=== PATIENT | male | born 1955 | race Caucasian/White ===

== ENCOUNTER 2017-04-25 06:58 | Emergency (ER) | payer BC ==
--- NOTE | 2017-04-25 07:32 | EDM.PDOC ---
ED HPI GENERAL MEDICAL PROBLEM - General Chief Complaint: Skin Complaint Stated Complaint: RECENT HEART CATHETER, TIGHTNESS IN RT ARM Time Seen by Provider: 04/25/17 07:18 - History of Present Illness INITIAL COMMENTS - FREE TEXT/NARRATIVE: HISTORY AND PHYSICAL: History of present illness: The patient is a 61-year-old male who presents for evaluation of redness of his inner left upper extremity where he had a heart catheter performed on April 07 at [facility]. The patient follows in our family practice clinic with Dr. Pj Yan and has a history of a CABG in 2006 and states that he was having some chest tightness and he went to [facility] where he had a heart catheter performed. He says that there was some minor blockage but they did not stand him and they placed him on some medication and did not want to see him back there for a checkup for one year. The patient has a follow-up scheduled with Dr. Yan on May 11. Patient says he has noticed some slight discomfort in his left upper extremity/biceps area on the inner aspect but there is no arm weakness and he has not had any chest pain or shortness of breath. This morning he noticed there was some redness in a streak-like fashion and he was concerned so we called [facility] who advised that he come here for evaluation. Patient has no systemic complaints of fever cough runny nose sore throat neurosensory changes in his extremities and is eating and drinking normally. Patient says that if he did not see the redness he would not even be here. He has had no swelling of the arm. Review of systems: As per history of present illness and below otherwise all systems reviewed and negative. Past medical history: As per history of present illness and as reviewed below otherwise noncontributory. Surgical history: As per history of present illness and as reviewed below otherwise noncontributory. Social history: No reported history of drug or alcohol abuse. Family history: As per history of present illness and as reviewed below otherwise noncontributory. Physical exam: Gen.: Well-developed well-nourished man who is nontoxic and vital signs have been noted by me. He moves easily in the ER without distress. HEENT: Atraumatic, normocephalic, negative for conjunctival pallor or scleral icterus, mucous membranes moist, throat clear, neck supple, nontender, trachea midline. Lungs: Clear to auscultation, breath sounds equal bilaterally, chest nontender. Heart: S1S2, regular rate and rhythm no overt murmurs Abdomen: Soft, nondistended, nontender. NABS. Pelvis: Stable nontender. Genitourinary: Deferred. Rectal: Deferred. Extremities: Atraumatic, negative for cords or calf pain. Neurovascular unremarkable. At the left upper extremity there is a small punctate scab seen as the entry point into the radial artery which has no erythema swelling or redness and there is no tenderness or drainage. A short distance more proximally there is a faint pink streaks that randomly originates and travels up towards the axillary area which is well demarcated but very faint pink in color. There is minimal tenderness to palpation in the area is slightly hardened and there is no compartment swelling and no neurosensory or motor deficits in the arm and there is no axillary adenopathy or tenderness. The patient has a very strong radial pulse in the left wrist Neuro: Awake, alert, oriented. Cranial nerves II through XII unremarkable. Cerebellum unremarkable. Motor and sensory unremarkable throughout. Exam nonfocal. Diagnostics: CBC with differential Arterial Doppler of the left upper extremity Therapeutics: [] [id number]-- this case was discussed with the screwhead stoner and polisher conservation scientist at [facility] , , who agrees this is likely a thrombophlebitis recommends an arterial Doppler to be performed as there is a 15-20% incidence of radial artery thrombus after this procedure. He says that oftentimes they do not treat this but it would be good to document that and if there is significant clot and a 10 day course of Lovenox would be indicated if there was any significant amount of thrombus. I discussed this conversation with the patient and will perform the ultrasound and also discussed this case with the patient's primary care physician Dr. Yan. The screwhead stoner and polisher also recommended a short course of antibiotics The patient and at bedside are aware of the normal arterial ultrasound and I will give him a course of Keflex. The patient's provider Dr. Yan is also aware of these results and the patient and has requested that the patient contact him on Sunday to touch base with him Impression: thrombo-Phlebitis status post heart catheter Of the left radial artery Definitive disposition and diagnosis as appropriate pending reevaluation and review of above. no pain Pain Score (Numeric/FACES): 0 - Related Data Allergies Allergy/AdvReac Type Severity Reaction Status Date / Time gluten Allergy Diarrhea Verified 04/25/17 07:10 Home Meds: Home Meds Aspirin 325 mg PO BEDTIME 04/25/17 [History] Carvedilol [Carvedilol] 1 tab PO DAILY 04/25/17 [History] Fish Oil/DHA/EPA [Fish Oil 1,200 MG] 1 each PO DAILY 04/25/17 [History] Furosemide [Furosemide] 1 tab PO DAILY 04/25/17 [History] Indomethacin [Indocin] 1 tab PO DAILY 04/25/17 [History] Lisinopril [Lisinopril] 1 tab PO DAILY 04/25/17 [History] PARoxetine HCl [Paroxetine HCl] 10 mg PO BID 04/25/17 [History] Tamsulosin HCl [Tamsulosin HCl] 1 tab PO BEDTIME 04/25/17 [History] amLODIPine [Norvasc] 5 mg PO DAILY 04/25/17 [History] metFORMIN HCl [Metformin HCl ER] 2 tab PO BID 04/25/17 [History] Past Medical History HEENT History: Reports: None Cardiovascular History: Reports: Bypass Respiratory History: Reports: None Gastrointestinal History: Reports: None Genitourinary History: Reports: None Musculoskeletal History: Reports: None Neurological History: Reports: None Psychiatric History: Reports: Anxiety, Depression Endocrine/Metabolic History: Reports: Diabetes, Type II Hematologic History: Reports: None Immunologic History: Reports: None Oncologic (Cancer) History: Reports: None Dermatologic History: Reports: None - Infectious Disease History Infectious Disease History: Reports: Chicken Pox, Measles, Mumps - Past Surgical History Head Surgeries/Procedures: Reports: None Cardiovascular Surgical History: Reports: Other (See Below) Other Cardiovascular Surgeries/Procedures: Cardiac Cath recently GI Surgical History: Reports: Cholecystectomy Social & Family History - Family History Family Medical History: Noncontributory - Tobacco Use Smoking Status *Q: Never Smoker - Caffeine Use Caffeine Use: Reports: Coffee - Recreational Drug Use Recreational Drug Use: No ED ROS GENERAL - Review of Systems Review Of Systems: ROS reveals no pertinent complaints other than HPI. ED EXAM, SKIN/RASH Exam: See Below (See dictation) Course - Vital Signs Last Recorded V/S: Last Vital Signs Temp 36.9 C 04/25/17 08:52 Pulse 59 L 01/03/18 08:52 Resp 14 04/25/17 08:52 BP 113/68 04/25/17 08:52 Pulse Ox 94 L 04/25/17 08:52 - Orders/Labs/Meds Labs: Laboratory Tests 04/25/17 Range/Units 07:34 WBC 4.97 (4.0-11.0) K/uL RBC 4.28 L (4.50-5.90) M/uL Hgb 13.6 (13.0-17.0) g/dL Hct 39.0 (38.0-50.0) % MCV 91.1 (80.0-98.0) fL MCH 31.8 (27.0-32.0) pg MCHC 34.9 (31.0-37.0) g/dL RDW Std Deviation 43.3 (28.0-62.0) fl RDW Coeff of Shantanu 13 (11.0-15.0) % Plt Count 159 (150-400) K/uL MPV 10.30 (7.40-12.00) fL Neut % (Auto) 54.7 (48.0-80.0) % Lymph % (Auto) 30.2 (16.0-40.0) % [place] % (Auto) 9.3 (0.0-15.0) % Eos % (Auto) 5.0 (0.0-7.0) % Baso % (Auto) 0.8 (0.0-1.5) % Neut # (Auto) 2.7 (1.4-5.7) K/uL Lymph # (Auto) 1.5 (0.6-2.4) K/uL [place] # (Auto) 0.5 (0.0-0.8) K/uL Eos # (Auto) 0.3 (0.0-0.7) K/uL Baso # (Auto) 0.0 (0.0-0.1) K/uL Nucleated RBC % 0.0 /100WBC Nucleated RBCs # 0 K/uL Departure - Departure Time of Disposition: 09:12 Disposition: Home, Self-Care 01 Condition: Good Clinical Impression: Thrombophlebitis arm - Discharge Information Referrals: Pj Yan MD [Primary Care Provider] - Forms: ED Department Discharge Additional Instructions: The following information is given to patients seen in the emergency department who are being discharged to home. This information is to outline your options for follow-up care. We provide all patients seen in our emergency department with a follow-up referral. The need for follow-up, as well as the timing and circumstances, are variable depending upon the specifics of your emergency department visit. If you don't have a primary care physician on staff, we will provide you with a referral. We always advise you to contact your personal physician following an emergency department visit to inform them of the circumstance of the visit and for follow-up with them and/or the need for any referrals to a consulting specialist. The emergency department will also refer you to a specialist when appropriate. This referral assures that you have the opportunity for followup care with a specialist. All of these measure are taken in an effort to provide you with optimal care, which includes your followup. Under all circumstances we always encourage you to contact your private physician who remains a resource for coordinating your care. When calling for followup care, please make the office aware that this follow-up is from your recent emergency room visit. If for any reason you are refused follow-up, please contact the [facility] emergency department at and ask to speak to the emergency department charge nurse. [facility] Primary care- Internal Medicine and Family [address] [address] Please take antibiotics as directed and monitor your symptoms. Please call Dr. Yan on Sunday to check in with him about how you are doing and return to ER as needed and as discussed
--- NOTE | 2017-04-25 09:04 | US ---
EXAMINATION: Left upper extremity arterial duplex ultrasound HISTORY: Evaluate for thrombus COMPARISON: None TECHNIQUE: Grayscale, color Doppler, and spectral Doppler images obtained of the left upper extremity . FINDINGS: Within the region of concern in the left brachial artery there is good triphasic waveforms. The luminal diameter appears normal. The adjacent brachial vein appears patent and compressible. IMPRESSION: No definite sonographic evidence of an arterial thrombus.
== END 2017-04-25 09:21 | disposition home or self-care (01) ==
LOC: MW.ED 06:58
DX: T82.868A Thrombosis due to vascular prosthetic devices, implants and grafts, initial encounter (principal); E11.9 Type 2 diabetes mellitus without complications; Z79.82 Long term (current) use of aspirin; Z79.899 Other long term (current) drug therapy; Z79.84 Long term (current) use of oral hypoglycemic drugs
CPT/HCPCS: 36415; 85025; 93931; 93931-26; 99284; 99284-25

== ENCOUNTER 2018-08-23 10:21 | Observation (INO) | payer MEDICARE, BC ==
[~2018-08-23 10:21] MED LIST: Aspirin 81 MG Tab.Chew PO ONE; Sodium Chloride 0.9% 10 ML Syringe FLUSH PRN; Sodium Chloride 0.9% 2.5 ML Syringe FLUSH PRN
--- NOTE | 2018-08-23 10:24 | EDM.PDOC ---
ED HPI GENERAL MEDICAL PROBLEM - General Stated Complaint: CHEST PAIN Time Seen by Provider: 08/23/18 10:21 Source of Information: Reports: Patient History Limitations: Reports: No Limitations - History of Present Illness INITIAL COMMENTS - FREE TEXT/NARRATIVE: HISTORY AND PHYSICAL: History of present illness: Patient is a 62-year-old male presents to the ED today with concern of sharp chest pain that occurred this morning in the center of his chest. Patient states the pain lasted less than a few seconds but he is concerned with his history of heart problems that he should come in and be evaluated. In the ED, patient denies any active chest pain at this time. Patient states over the past week to 2 weeks he has felt more tired and run down in general. Patient states he has lost 20 pounds in 2 weeks without trying. Patient states he has also had issues with a loss of balance and feels a "buzz" in his head. Patient states he feels like something is wrapped around his head at all times. Patient denies loss of consciousness or hitting his head. Patient states the reason he thinks he has lost weight as he has had a decrease in appetite. He states that he does not necessarily feel nauseous but the sound of food just doesn't seem appealing. Patient denies any tobacco, alcohol, or other recreational drug use. Patient has a history of a triple bypass done in 2006. At that time patient states his only presenting symptoms were shortness of breath. Patient states his symptoms today are not similar to a prior CAD event. Patient does take a daily aspirin at 325 mg and he did take his dose last night. Patient denies fever, chills, shortness of breath, or cough. Denies headache, neck stiff ness, change in vision, syncope, or near syncope. Denies vomiting, abdominal pain, diarrhea, constipation, or dysuria. Has not noted any blood in urine or stool. Review of systems: As per history of present illness and below otherwise all systems reviewed and negative. Past medical history: As per history of present illness and as reviewed below otherwise noncontributory. Surgical history: As per history of present illness and as reviewed below otherwise noncontributory. Social history: See social history for further information Family history: As per history of present illness and as reviewed below otherwise noncontributory. Physical exam: General: Patient is alert, oriented, and in no acute distress. Patient laying comfortably on exam table. HEENT: Atraumatic, normocephalic, pupils equal and reactive bilaterally, negative for conjunctival pallor or scleral icterus, mucous membranes moist, TMs normal bilaterally, throat clear, neck supple, nontender, trachea midline. No drooling or trismus noted. No meningeal signs. No hot potato voice noted. Lungs: Clear to auscultation, breath sounds equal bilaterally, chest nontender. Heart: S1S2, regular rate and rhythm without overt murmur Abdomen: Soft, nondistended, nontender. Negative for masses or hepatosplenomegaly. Negative for costovertebral tenderness. Pelvis: Stable nontender. Genitourinary: Deferred. Rectal: Deferred. Skin: Intact, warm, dry. No lesions or rashes noted. Extremities: Atraumatic, negative for cords or calf pain. Neurovascular unremarkable. Neuro: Awake, alert, oriented. Cranial nerves II through XII unremarkable. Cerebellum unremarkable. Motor and sensory unremarkable throughout. Exam nonfocal. Notes: CXR shows no acute cardiopulmonary process. Head CT shows no acute intracranial findings. Dr. Velasquez was consulted on patient and will admit to observation. Voices understanding and is agreeable to plan of care. Denies any further questions or concerns at this time. Diagnostics: CBC, CMP, UA, EKG, troponin, chest x-ray, head CT, orthostatic vitals Therapeutics: Saline lock Impression: Chest pain, unspecified Cannot r/o ACS h/o ACS with cardiac bypass Plan: 1. Admit to observation to Dr. Velasquez Definitive disposition and diagnosis as appropriate pending reevaluation and review of above. Chest Pain Score (Numeric/FACES): 2 - Related Data Allergies Allergy/AdvReac Type Severity Reaction Status Date / Time gluten Allergy Diarrhea Verified 12/05/17 22:40 MDT [id number] Reductase Allergy Pain Verified 08/23/18 10:28 Inhibitor Home Meds: Home Meds Aspirin 325 mg PO BEDTIME 04/25/17 [History] Carvedilol 3.125 mg PO BID 04/25/17 [History] Fish Oil/DHA/EPA [Fish Oil 1,200 MG] 1,000 mg PO DAILY 04/25/17 [History] Lisinopril 10 mg PO DAILY 04/25/17 [History] Tamsulosin HCl 0.4 mg PO BEDTIME 04/25/17 [History] amLODIPine [Norvasc] 5 mg PO BEDTIME 04/25/17 [History] metFORMIN HCl [Metformin HCl ER] 500 mg PO BID 04/25/17 [History] Ascorbic Acid [Vitamin C] 1,000 mg PO BID 12/05/17 [History] Cholecalciferol (Vitamin D3) [Vitamin D3] 5,000 units PO DAILY 12/05/17 [History ] Multivitamin [Multi-Day Vitamins] 1 tab PO DAILY 12/05/17 [History] Past Medical History HEENT History: Reports: None Cardiovascular History: Reports: Bypass, High Cholesterol, Hypertension Respiratory History: Reports: None Gastrointestinal History: Reports: None Genitourinary History: Reports: None, Prostate Disorder Musculoskeletal History: Reports: None Neurological History: Reports: None Psychiatric History: Reports: Anxiety, Depression Endocrine/Metabolic History: Reports: Diabetes, Type II Hematologic History: Reports: None Immunologic History: Reports: None Oncologic (Cancer) History: Reports: None Dermatologic History: Reports: None - Infectious Disease History Infectious Disease History: Reports: Chicken Pox, Measles, Mumps - Past Surgical History Head Surgeries/Procedures: Reports: None Cardiovascular Surgical History: Reports: Other (See Below) Other Cardiovascular Surgeries/Procedures: Cardiac Cath recently GI Surgical History: Reports: Cholecystectomy Social & Family History - Family History Family Medical History: Noncontributory - Caffeine Use Caffeine Use: Reports: Coffee, Soda ED ROS GENERAL - Review of Systems Review Of Systems: ROS reveals no pertinent complaints other than HPI. ED EXAM, GENERAL - Physical Exam Exam: See Below (see dictation) Course - Vital Signs Last Recorded V/S: Last Vital Signs Temp 36.6 C 08/23/18 10:31 Pulse 58 L 08/23/18 10:31 Resp 18 08/23/18 10:31 BP 143/71 H 08/23/18 10:31 Pulse Ox 98 08/23/18 10:31 - Orders/Labs/Meds Orders: Active Orders 24 hr Category Date Time Status Admission Status [Patient Status] [ADT] Stat ADT 08/23/18 12:00 Ordered EKG Documentation Completion [RC] STAT Care 08/23/18 10:22 Active CULTURE URINE [RM] Stat Lab 08/23/18 11:30 Received Sodium Chloride 0.9% [Saline Flush] Med 08/23/18 10:21 Active 10 ml FLUSH ASDIRECTED PRN Sodium Chloride 0.9% [Saline Flush] Med 08/23/18 10:21 Active 2.5 ml FLUSH ASDIRECTED PRN Saline Lock Insert [OM.PC] Stat Oth 08/23/18 10:21 Ordered Medication Orders Sodium Chloride (Saline Flush) 10 ml FLUSH ASDIRECTED PRN PRN Reason: Keep Vein Open Sodium Chloride (Saline Flush) 2.5 ml FLUSH ASDIRECTED PRN PRN Reason: Keep Vein Open Labs: Laboratory Tests 08/23/18 08/23/18 08/23/18 Range/Units 10:38 10:38 11:30 WBC 6.40 (4.0-11.0) K/uL RBC 4.49 L (4.50-5.90) M/uL Hgb 14.0 (13.0-17.0) g/dL Hct 40.1 (38.0-50.0) % MCV 89.3 (80.0-98.0) fL MCH 31.2 (27.0-32.0) pg MCHC 34.9 (31.0-37.0) g/dL RDW Std Deviation 43.0 (28.0-62.0) fl RDW Coeff of Shantanu 13 (11.0-15.0) % Plt Count 192 (150-400) K/uL MPV 10.20 (7.40-12.00) fL Neut % (Auto) 51.1 (48.0-80.0) % Lymph % (Auto) 33.4 (16.0-40.0) % [place] % (Auto) 9.8 (0.0-15.0) % Eos % (Auto) 4.8 (0.0-7.0) % Baso % (Auto) 0.9 (0.0-1.5) % Neut # (Auto) 3.3 (1.4-5.7) K/uL Lymph # (Auto) 2.1 (0.6-2.4) K/uL [place] # (Auto) 0.6 (0.0-0.8) K/uL Eos # (Auto) 0.3 (0.0-0.7) K/uL Baso # (Auto) 0.1 (0.0-0.1) K/uL Nucleated RBC % 0.0 /100WBC Nucleated RBCs # 0 K/uL Sodium 136 (136-148) mmol/L Potassium 4.5 (3.5-5.1) mmol/L Chloride 99 (98-107) mmol/L Carbon Dioxide 23.2 (21.0-32.0) mmol/L BUN 19 H (7.0-18.0) mg/dL Creatinine 1.0 (0.8-1.3) mg/dL Est Cr Clr Drug Dosing 81.91 mL/min Estimated GFR (MDRD) > 60.0 ml/min Glucose 136 H (74-106) mg/dL Calcium 9.9 (8.5-10.1) mg/dL Total Bilirubin 0.4 (0.2-1.0) mg/dL AST 16 (15-37) IU/L ALT 21 (14-63) IU/L Alkaline Phosphatase 57 (46-116) U/L Troponin I < 0.050 (0.000-0.056) ng/mL Total Protein 8.3 H (6.4-8.2) g/dL Albumin 4.5 (3.4-5.0) g/dL Globulin 3.8 (2.6-4.0) g/dL Albumin/Globulin Ratio 1.2 (0.9-1.6) Urine Color YELLOW Urine Appearance CLEAR Urine pH 5.5 (5.0-8.0) Ur Specific [place] <= 1.005 (1.001-1.035) Urine Protein NEGATIVE (NEGATIVE) mg/dL Urine Glucose (UA) NEGATIVE (NEGATIVE) mg/dL Urine Ketones NEGATIVE (NEGATIVE) mg/dL Urine Occult Blood TRACE-INTACT H (NEGATIVE) Urine Nitrite NEGATIVE (NEGATIVE) Urine Bilirubin NEGATIVE (NEGATIVE) Urine Urobilinogen 0.2 (<2.0) EU/dL Ur Leukocyte Esterase SMALL H (NEGATIVE) Urine RBC 0-2 (0-2/HPF) Urine WBC 5-10 (0-5/HPF) Ur Epithelial Cells OCCASIONAL (NONE-FEW) Urine Bacteria FEW (NEGATIVE) Meds: Medications Generic Name Dose Route Start Last Admin Trade Name Freq PRN Reason Stop Dose Admin Sodium Chloride 10 ml 08/23/18 10:21 Saline Flush FLUSH ASDIRECTED PRN Keep Vein Open Sodium Chloride 2.5 ml 08/23/18 10:21 Saline Flush FLUSH ASDIRECTED PRN Keep Vein Open Discontinued Medications Generic Name Dose Route Start Last Admin Trade Name Todd PRN Reason Stop Dose Admin Aspirin 324 mg 08/23/18 10:21 08/23/18 11:32 Aspirin PO 08/23/18 10:22 Not Given ONETIME ONE Departure - Departure Time of Disposition: 12:02 Disposition: Refer to Observation Clinical Impression: History of heart bypass surgery Chest pain Qualifiers: Chest pain type: unspecified Qualified Code(s): R07.9 - Chest pain, unspecified Referrals: PCP,Unknown [Primary Care Provider] - - My Orders Last 24 Hours: My Active Orders 08/23/18 10:21 Sodium Chloride 0.9% [Saline Flush] 10 ml FLUSH ASDIRECTED PRN Sodium Chloride 0.9% [Saline Flush] 2.5 ml FLUSH ASDIRECTED PRN Saline Lock Insert [OM.PC] Stat 08/23/18 10:22 EKG Documentation Completion [RC] STAT 08/23/18 11:30 CULTURE URINE [RM] Stat 08/23/18 12:00 Admission Status [Patient Status] [ADT] Stat - Assessment/Plan Last 24 Hours: My Active Orders 08/23/18 10:21 Sodium Chloride 0.9% [Saline Flush] 10 ml FLUSH ASDIRECTED PRN Sodium Chloride 0.9% [Saline Flush] 2.5 ml FLUSH ASDIRECTED PRN Saline Lock Insert [OM.PC] Stat 08/23/18 10:22 EKG Documentation Completion [RC] STAT 08/23/18 11:30 CULTURE URINE [RM] Stat 08/23/18 12:00 Admission Status [Patient Status] [ADT] Stat
--- NOTE | 2018-08-23 11:17 | CR ---
EXAMINATION: Portable chest radiograph. HISTORY: Chest pain. FINDINGS: The trachea is midline. The cardiomediastinal silhouette is within normal limits. No pulmonary infiltrates, effusions or pneumothorax. Median sternotomy wires are noted. Osseous structures appear unremarkable. IMPRESSION: No acute cardiopulmonary process.
[2018-08-23 11:32] LABS: CHLORIDE,CL 99 mmol/L (98-107); SODIUM,NA 136 mmol/L (136-148)
--- NOTE | 2018-08-23 11:32 | CT ---
EXAMINATION: Non contrast CT head. Coronal and sagittal reformats. HISTORY: Balance FINDINGS: No evidence of intra or extra axial hemorrhage, mass, midline shift, hydrocephalus or edema. No hypoattenuation changes in the major vascular territories to suggest acute infarct. No abnormal intracranial calcifications are detected. No evidence of substantial vascular calcifications. Paranasal sinuses and mastoid air cells are essentially aerated without substantial findings. Pituitary fossa appears unremarkable. Orbits and globes are symmetric. Calvarium is intact. No evidence of skull fracture. IMPRESSION: No acute intracranial findings.
[2018-08-23] MEDS ORDERED: Docusate Sodium 100 MG Cap PO PRN (12:28)
[2018-08-23] MEDS ORDERED: Ondansetron 4 MG Tab.DIS PO PRN (12:28)
[2018-08-23] MEDS ORDERED: oxyCODONE 5 MG Tab PO PRN (12:28)
[2018-08-23] MEDS ORDERED: Acetaminophen 325 MG Tab PO PRN (12:28)
[2018-08-23] MEDS ORDERED: Temazepam 15 MG Cap PO PRN (12:28)
[2018-08-23] MEDS ORDERED: Enoxaparin 40 MG/0.4 ML Syringe SUBCUT SCH (12:30)
--- NOTE | 2018-08-23 12:38 | PCM.HP ---
H&P History of Present Illness - General Date of Service: 08/23/18 Admit Problem/Dx: Admission Diagnosis/Problem Admission Diagnosis/Problem Chest pain Source of Information: Patient History Limitations: Reports: No Limitations - History of Present Illness Initial Comments - Free Text/Narative: The patient is a 62-year-old gentleman who had presented to the emergency department with a complaint of sharp chest pain that occurred this morning in the center of his chest. The patient was concerned as he does have a history of coronary artery disease with CABG in 2005. The patient says that the pain does not radiate. He's also had no other associated symptoms. The patient's current chest pain is dissimilar from his previous cardiac disease. The patient also has been complaining of fatigue and weakness for the past couple of weeks as well. He feels like his arms and legs are heavy. The patient has denied any dizziness or lightheadedness however, he says that he has recently had issues with loss of balance and a "buzz" in his head. The patient says that he has had a completely normal workup prior to his CABG in 2005 and he also had negative heart enzyme testing. Onset of Symptoms: Reports: Sudden Duration of Symptoms: Reports: Hour(s):, Improving Location: Reports: Chest Quality: Reports: Sharp, Stabbing Improves with: Reports: Rest Worsens with: Reports: Movement Associated Symptoms: Reports: No Other Symptoms Chest Pain Score (Numeric/FACES): 2 - Related Data Allergies/Adverse Reactions: Allergies Allergy/AdvReac Type Severity Reaction Status Date / Time gluten Allergy Diarrhea Verified 12/05/17 22:40 MDT Xsextpx-Dog-[id number] Reductase Allergy Pain Verified 08/23/18 10:28 Inhibitor Home Medications: Home Meds Aspirin 325 mg PO BEDTIME 04/25/17 [History] Carvedilol 3.125 mg PO BID 04/25/17 [History] Fish Oil/DHA/EPA [Fish Oil 1,200 MG] 1,000 mg PO DAILY 04/25/17 [History] Lisinopril 10 mg PO DAILY 04/25/17 [History] Tamsulosin HCl 0.4 mg PO BEDTIME 04/25/17 [History] amLODIPine [Norvasc] 5 mg PO BEDTIME 04/25/17 [History] metFORMIN HCl [Metformin HCl ER] 500 mg PO BID 04/25/17 [History] Ascorbic Acid [Vitamin C] 1,000 mg PO BID 12/05/17 [History] Cholecalciferol (Vitamin D3) [Vitamin D3] 5,000 units PO DAILY 12/05/17 [History ] Multivitamin [Multi-Day Vitamins] 1 tab PO DAILY 12/05/17 [History] Past Medical History HEENT History: Reports: None Cardiovascular History: Reports: Bypass, High Cholesterol, Hypertension Respiratory History: Reports: None Gastrointestinal History: Reports: None Genitourinary History: Reports: None, Prostate Disorder Musculoskeletal History: Reports: None Neurological History: Reports: None Psychiatric History: Reports: Anxiety, Depression Endocrine/Metabolic History: Reports: Diabetes, Type II Hematologic History: Reports: None Immunologic History: Reports: None Oncologic (Cancer) History: Reports: None Dermatologic History: Reports: None - Infectious Disease History Infectious Disease History: Reports: Chicken Pox, Measles, Mumps - Past Surgical History Head Surgeries/Procedures: Reports: None Cardiovascular Surgical History: Reports: Other (See Below) Other Cardiovascular Surgeries/Procedures: Cardiac Cath recently GI Surgical History: Reports: Cholecystectomy Social & Family History - Family History Family Medical History: Noncontributory - Tobacco Use Smoking Status *Q: Never Smoker Second Hand Smoke Exposure: No - Caffeine Use Caffeine Use: Reports: Coffee, Soda - Alcohol Use Alcohol Use History: No - Recreational Drug Use Recreational Drug Use: No - Living Situation & Occupation Living situation: Reports: , with Spouse Occupation: Retired H&P Review of Systems - Review of Systems: Review Of Systems: See Below General: Reports: Weight Loss HEENT: Reports: No Symptoms Pulmonary: Reports: No Symptoms Cardiovascular: Reports: Chest Pain Gastrointestinal: Reports: No Symptoms Genitourinary: Reports: No Symptoms Musculoskeletal: Reports: No Symptoms Skin: Reports: No Symptoms Psychiatric: Reports: No Symptoms Neurological: Reports: No Symptoms Hematologic/Lymphatic: Reports: No Symptoms Immunologic: Reports: No Symptoms Exam - Exam Exam: See Below - Vital Signs Vital Signs: Last Vital Signs Temp 36.6 C 08/23/18 10:31 Pulse 59 L 08/23/18 11:30 Resp 18 08/23/18 11:30 BP 132/72 08/23/18 11:30 Pulse Ox 97 08/23/18 11:30 Weight: 92.079 kg - Exam Quality Assessment: No: Supplemental Oxygen General: Alert, Oriented, Cooperative HEENT: Conjunctiva Clear, EACs Clear, EOMI, Mucosa Moist & [place], Pupils Equal, PERRLA Neck: Supple, Trachea Midline Lungs: Clear to Auscultation, Normal Respiratory Effort Cardiovascular: Regular Rate, Regular Rhythm GI/Abdominal Exam: Normal Bowel Sounds, Soft, Non-Tender, No Distention (Male) Exam: Deferred Rectal (Males) Exam: Deferred Back Exam: Normal Inspection, Full Range of Motion Extremities: Normal Inspection, Normal Range of Motion, Non-Tender, No Pedal Edema Skin: Warm, Dry, Intact Neurological: Cranial Nerves Intact Psychiatric: Alert, Normal Affect, Normal Mood - Patient Data Lab Results Last 24 hrs: Laboratory Results - last 24 hr 08/23/18 08/23/18 08/23/18 Range/Units 10:38 10:38 11:30 WBC 6.40 (4.0-11.0) K/uL RBC 4.49 L (4.50-5.90) M/uL Hgb 14.0 (13.0-17.0) g/dL Hct 40.1 (38.0-50.0) % MCV 89.3 (80.0-98.0) fL MCH 31.2 (27.0-32.0) pg MCHC 34.9 (31.0-37.0) g/dL RDW Std Deviation 43.0 (28.0-62.0) fl RDW Coeff of Shantanu 13 (11.0-15.0) % Plt Count 192 (150-400) K/uL MPV 10.20 (7.40-12.00) fL Neut % (Auto) 51.1 (48.0-80.0) % Lymph % (Auto) 33.4 (16.0-40.0) % Schuyler % (Auto) 9.8 (0.0-15.0) % Eos % (Auto) 4.8 (0.0-7.0) % Baso % (Auto) 0.9 (0.0-1.5) % Neut # (Auto) 3.3 (1.4-5.7) K/uL Lymph # (Auto) 2.1 (0.6-2.4) K/uL Schuyler # (Auto) 0.6 (0.0-0.8) K/uL Eos # (Auto) 0.3 (0.0-0.7) K/uL Baso # (Auto) 0.1 (0.0-0.1) K/uL Nucleated RBC % 0.0 /100WBC Nucleated RBCs # 0 K/uL Sodium 136 (136-148) mmol/L Potassium 4.5 (3.5-5.1) mmol/L Chloride 99 (98-107) mmol/L Carbon Dioxide 23.2 (21.0-32.0) mmol/L BUN 19 H (7.0-18.0) mg/dL Creatinine 1.0 (0.8-1.3) mg/dL Est Cr Clr Drug Dosing 81.91 mL/min Estimated GFR (MDRD) > 60.0 ml/min Glucose 136 H (74-106) mg/dL Calcium 9.9 (8.5-10.1) mg/dL Total Bilirubin 0.4 (0.2-1.0) mg/dL AST 16 (15-37) IU/L ALT 21 (14-63) IU/L Alkaline Phosphatase 57 (46-116) U/L Troponin I < 0.050 (0.000-0.056) ng/mL Total Protein 8.3 H (6.4-8.2) g/dL Albumin 4.5 (3.4-5.0) g/dL Globulin 3.8 (2.6-4.0) g/dL Albumin/Globulin Ratio 1.2 (0.9-1.6) Urine Color YELLOW Urine Appearance CLEAR Urine pH 5.5 (5.0-8.0) Ur Specific [place] <= 1.005 (1.001-1.035) Urine Protein NEGATIVE (NEGATIVE) mg/dL Urine Glucose (UA) NEGATIVE (NEGATIVE) mg/dL Urine Ketones NEGATIVE (NEGATIVE) mg/dL Urine Occult Blood TRACE-INTACT H (NEGATIVE) Urine Nitrite NEGATIVE (NEGATIVE) Urine Bilirubin NEGATIVE (NEGATIVE) Urine Urobilinogen 0.2 (<2.0) EU/dL Ur Leukocyte Esterase SMALL H (NEGATIVE) Urine RBC 0-2 (0-2/HPF) Urine WBC 5-10 (0-5/HPF) Ur Epithelial Cells OCCASIONAL (NONE-FEW) Urine Bacteria FEW (NEGATIVE) Result Diagrams: 08/23/18 10:38 08/23/18 10:38 - Problem List (1) Chest pain SNOMED Code(s): 12761561 ICD Code: R07.9 - CHEST PAIN, UNSPECIFIED Status: Acute Priority: High Current Visit: Yes Qualifiers: Chest pain type: precordial pain Qualified Code(s): R07.2 - Precordial pain (2) Hypertension SNOMED Code(s): 09470548 ICD Code: I10 - ESSENTIAL (PRIMARY) HYPERTENSION Status: Chronic Priority : High Current Visit: Yes Qualifiers: Hypertension type: essential hypertension Qualified Code(s): I10 - Essential (primary) hypertension (3) Diabetes mellitus type 2, controlled, without complications SNOMED Code(s): 002788732, 915547464 ICD Code: E11.9 - TYPE 2 DIABETES MELLITUS WITHOUT COMPLICATIONS Status: Chronic Priority: High Current Visit: Yes Qualifiers: Diabetes mellitus correction insulin use: without correction use Qualified Code(s): E11.9 - Type 2 diabetes mellitus without complications (4) History of heart bypass surgery SNOMED Code(s): 021451980 ICD Code: Z95.1 - PRESENCE OF AORTOCORONARY BYPASS GRAFT Status: Chronic Priority: High Current Visit: Yes Problem List Initiated/Reviewed/Updated: Yes Orders Last 24hrs: Active Orders 24 hr Category Date Time Status Admission Status [Patient Status] [ADT] Stat ADT 08/23/18 12:00 Active Blood Glucose Check, Bedside [RC] TIDAC Care 08/23/18 12:28 Active Cardiac Monitoring [RC] CONTINUOUS Care 08/23/18 12:28 Active Diabetes Education [RC] Click to Edit Care 08/23/18 12:30 Active EKG Documentation Completion [RC] AM Care 08/24/18 08:00 Active Oxygen Therapy [RC] PRN Care 08/23/18 12:28 Active Up ad Milly [RC] ASDIRECTED Care 08/23/18 12:28 Active VTE/DVT Education [RC] PER UNIT ROUTINE Care 08/23/18 12:28 Active Vital Signs [RC] Q4H Care 08/23/18 12:28 Active [employer] Diet [DIET] Diet 08/23/18 Lunch Active Echo Comp wo Cont [US] Stat Exams 08/23/18 12:07 Ordered CULTURE URINE [RM] Stat Lab 08/23/18 11:30 Received GLYCOSYLATED HEMOGLOBIN,HGBA1C [CHEM] Routine Lab 08/23/18 12:37 Ordered T3 FREE [CHEM] Stat Lab 08/23/18 10:38 Received T4 FREE [CHEM] Stat Lab 08/23/18 10:38 Received TROPONIN I [CHEM] Q6H Lab 08/23/18 12:28 Ordered TROPONIN I [CHEM] Q6H Lab 08/23/18 18:28 Ordered TSH [CHEM] Stat Lab 08/23/18 10:38 Received Acetaminophen [Tylenol] Med 08/23/18 12:28 Active 650 mg PO Q4H PRN Aspirin Med 08/23/18 21:00 Active 325 mg PO BEDTIME Carvedilol [Coreg] Med 08/23/18 21:00 Active 3.125 mg PO BID Docusate Sodium [Colace] Med 08/23/18 12:28 Active 100 mg PO BID PRN Enoxaparin [Lovenox] Med 08/23/18 12:30 Active 40 mg SUBCUT Q24H Insulin Aspart [NovoLOG] Med 08/23/18 17:00 Active See Protocol SUBCUT TIDAC Lisinopril [Prinivil] Med 08/24/18 09:00 Active 10 mg PO DAILY Ondansetron [Zofran ODT] Med 08/23/18 12:28 Active 4 mg PO Q6H PRN Sodium Chloride 0.9% [Saline Flush] Med 08/23/18 10:21 Active 10 ml FLUSH ASDIRECTED PRN Sodium Chloride 0.9% [Saline Flush] Med 08/23/18 10:21 Active 2.5 ml FLUSH ASDIRECTED PRN Tamsulosin [Flomax] Med 08/23/18 21:00 Active 0.4 mg PO BEDTIME Temazepam [Restoril] Med 08/23/18 12:28 Active 15 mg PO BEDTIME PRN amLODIPine [Norvasc] Med 08/23/18 21:00 Active 5 mg PO BEDTIME oxyCODONE Med 08/23/18 12:28 Active 5 mg PO Q4H PRN Glucose Management Sub Q Reflex [OM.PC] Click To Edit Oth 08/23/18 12:28 Ordered Saline Lock Insert [OM.PC] Stat Oth 08/23/18 10:21 Ordered Resuscitation Status Routine Resus Stat 08/23/18 12:28 Ordered Medication Orders Acetaminophen (Tylenol) 650 mg PO Q4H PRN PRN Reason: Pain (Mild 1-3)/fever Amlodipine Besylate (Norvasc) 5 mg PO BEDTIME [facility]AN Aspirin (Aspirin) 325 mg PO BEDTIME [facility] Carvedilol (Coreg) 3.125 mg PO BID ISHAN Docusate Sodium (Colace) 100 mg PO BID PRN PRN Reason: Constipation Enoxaparin Sodium (Lovenox) 40 mg SUBCUT Q24H [facility]AN Insulin Aspart (Novolog) 0 unit SUBCUT TIDAC [facility]; Protocol Lisinopril (Prinivil) 10 mg PO DAILY ISHAN Ondansetron HCl (Zofran Odt) 4 mg PO Q6H PRN PRN Reason: nausea, able to take PO Oxycodone HCl (Oxycodone) 5 mg PO Q4H PRN PRN Reason: Pain (moderate 4-6) Sodium Chloride (Saline Flush) 10 ml FLUSH ASDIRECTED PRN PRN Reason: Keep Vein Open Sodium Chloride (Saline Flush) 2.5 ml FLUSH ASDIRECTED PRN PRN Reason: Keep Vein Open Tamsulosin HCl (Flomax) 0.4 mg PO BEDTIME ISHAN Temazepam (Restoril) 15 mg PO BEDTIME PRN PRN Reason: Sleep Assessment/Plan Comment:: The patient is a 62-year-old gentleman who has a history of heart disease with coronary artery bypass and he has been admitted to observation secondary to his chest pain. The patient will have 3 sets of troponins completed. He'll also be kept on telemetry. The patient will have an EKG in the morning to assess for dynamic changes. The patient is a diabetic of also ordered hemoglobin A1c. He' ll be kept on appropriate heart healthy, diabetic diet and he'll have Accu- Cheks before meals and at bedtime with moderate dose sliding scale insulin. I explained to the patient that if he has any specific abnormalities which would require further treatment he will be considered for transfer to tertiary care center. The patient will also be afforded DVT prophylaxis with the use of 40 mg of Lovenox subcutaneous daily. The patient should be appropriate for discharge in the morning.
[2018-08-23 13:20] LABS: HEMOGLOBIN A1C 6.8 % (4.5-6.2)
[2018-08-23] MEDS: Insulin Aspart 100 Units/ML 3 ML Pen SUBCUT SCH (17:42)
[2018-08-23] MEDS ORDERED: Aspirin 325 MG Tab PO SCH (21:00)
[2018-08-23] MEDS ORDERED: amLODIPine 5 MG Tab PO SCH (21:00)
[2018-08-23] MEDS ORDERED: Tamsulosin 0.4 MG Cap.ER PO SCH (21:00)
[2018-08-23] MEDS: Carvedilol 3.125 MG Tab PO SCH (21:08)
[2018-08-24] MEDS: Insulin Aspart 100 Units/ML 3 ML Pen SUBCUT SCH (06:38)
--- NOTE | 2018-08-24 08:22 | PCM.DCSUM1 ---
Discharge Summary - Hospital Course HPI Initial Comments: The patient was admitted secondary to chest pain and to rule out acute coronary syndrome. Diagnosis: Stroke: No - Discharge Data Discharge Date: 08/24/18 Discharge Disposition: Home, Self-Care 01 Condition: Good - Discharge Diagnosis/Problem(s) (1) Chest pain SNOMED Code(s): 39729745 ICD Code: R07.9 - CHEST PAIN, UNSPECIFIED Status: Resolved Priority: High Current Visit: Yes Qualifiers: Chest pain type: precordial pain Qualified Code(s): R07.2 - Precordial pain (2) Hypertension SNOMED Code(s): 00996312 ICD Code: I10 - ESSENTIAL (PRIMARY) HYPERTENSION Status: Chronic Priority : High Current Visit: Yes Qualifiers: Hypertension type: essential hypertension Qualified Code(s): I10 - Essential (primary) hypertension (3) Diabetes mellitus type 2, controlled, without complications SNOMED Code(s): 506858317, 033688184 ICD Code: E11.9 - TYPE 2 DIABETES MELLITUS WITHOUT COMPLICATIONS Status: Chronic Priority: High Current Visit: Yes Qualifiers: Diabetes mellitus halfway insulin use: without halfway use Qualified Code(s): E11.9 - Type 2 diabetes mellitus without complications (4) History of heart bypass surgery SNOMED Code(s): 743870010 ICD Code: Z95.1 - PRESENCE OF AORTOCORONARY BYPASS GRAFT Status: Chronic Priority: High Current Visit: Yes - Patient Summary/Data Hospital Course: The patient is a 62-year-old gentleman who has a history of coronary artery disease with CABG in 2005. The patient then was admitted to help rule out acute coronary syndrome. The patient says that his pain was dissimilar from his previous cardiac disease. He also had been complaining of fatigue to go with this. The patient also had a 2-D echocardiogram obtained on August 23, 2018 and the results of this are currently pending. He did have a head CT completed on 2018 which showed no acute findings. The patient also had normal TSH and free T3 and T4. While in hospital the patient was kept on a heart healthy diet, carb constant is patient is diabetic. He also had a hemoglobin A1c which was found to be at 6.8% which indicates good control. The patient had remained pain-free during the short course of hospitalization. There are no telemetry events noted. The patient's EKG was unchanged from admission. 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 He is also to have his regular heart healthy, diabetic diet as tolerated. The patient has been recommended continue with his usual activity as tolerated. He has been hemodynamically stable and he is discharged from acute hospitalization with the recommendations above. - Patient Instructions Diet: Heart Healthy Diet, Diabetic Diet Activity: As Tolerated Notify Provider of: Fever, Increased Pain - Discharge Plan *PRESCRIPTION DRUG MONITORING PROGRAM REVIEWED*: No *COPY OF PRESCRIPTION DRUG MONITORING REPORT IN PATIENT ANDREA: No Home Medications: Home Meds Aspirin 325 mg PO BEDTIME 04/25/17 [History] Carvedilol 3.125 mg PO BID 04/25/17 [History] Fish Oil/DHA/EPA [Fish Oil 1,200 MG] 1,000 mg PO DAILY 04/25/17 [History] Lisinopril 10 mg PO DAILY 04/25/17 [History] amLODIPine [Norvasc] 5 mg PO BEDTIME 04/25/17 [History] metFORMIN HCl [Metformin HCl ER] 1,000 mg PO BID 04/25/17 [History] Ascorbic Acid [Vitamin C] 1,000 mg PO BID 12/05/17 [History] Cholecalciferol (Vitamin D3) [Vitamin D3] 5,000 units PO DAILY 12/05/17 [History ] Multivitamin [Multi-Day Vitamins] 1 tab PO DAILY 12/05/17 [History] Tamsulosin [Flomax] 0.4 mg PO BEDTIME cap.er 08/24/18 [Rx] Oxygen Therapy Mode: Room Air Patient Handouts: Nonspecific Chest Pain, [id number] Referrals: [facility] [Outside] Marcelino Giang MD [Physician] - (Call the [facility] on Sunday to schedul an appointment due to you being admitted for chest pain. ) Brandyn Durand MD [Ordering Only Provider] - 08/30/18 9:00 am (Arrive 15 minutes early with a photo ID and an insurance card.) - Discharge Summary/Plan Comment DC Time >30 min.: Yes - General Info Date of Service: 08/24/18 Admission Dx/Problem (Free Text: Admission Diagnosis/Problem Admission Diagnosis/Problem Chest pain, atypical, history of coronary artery disease, history of CABG Subjective Update: The patient is feeling much better today. Feels like he can go home. Functional Status: Reports: Pain Controlled - Review of Systems General: Reports: No Symptoms HEENT: Reports: No Symptoms Pulmonary: Reports: No Symptoms Cardiovascular: Reports: No Symptoms Gastrointestinal: Reports: No Symptoms Genitourinary: Reports: No Symptoms Musculoskeletal: Reports: No Symptoms Skin: Reports: No Symptoms Neurological: Reports: No Symptoms Psychiatric: Reports: No Symptoms - Patient Data Vitals - Most Recent: Last Vital Signs Temp 36.4 C 08/24/18 08:00 Pulse 75 08/24/18 08:00 Resp 18 08/24/18 08:00 BP 103/55 L 08/24/18 08:00 Pulse Ox 96 08/24/18 08:00 Weight - Most Recent: 92.079 kg I&O - Last 24 hours: Intake & Output 08/23/18 08/24/18 08/24/18 22:59 06:59 14:59 Intake Total 1400 550 Output Total 1400 1200 Balance 0 -650 Lab Results - Last 24 hrs: Laboratory Results - last 24 hr 08/23/18 08/23/18 08/23/18 Range/Units 10:38 10:38 10:38 WBC 6.40 (4.0-11.0) K/uL RBC 4.49 L (4.50-5.90) M/uL Hgb 14.0 (13.0-17.0) g/dL Hct 40.1 (38.0-50.0) % MCV 89.3 (80.0-98.0) fL MCH 31.2 (27.0-32.0) pg MCHC 34.9 (31.0-37.0) g/dL RDW Std Deviation 43.0 (28.0-62.0) fl RDW Coeff of Shantanu 13 (11.0-15.0) % Plt Count 192 (150-400) K/uL MPV 10.20 (7.40-12.00) fL Neut % (Auto) 51.1 (48.0-80.0) % Lymph % (Auto) 33.4 (16.0-40.0) % [place] % (Auto) 9.8 (0.0-15.0) % Eos % (Auto) 4.8 (0.0-7.0) % Baso % (Auto) 0.9 (0.0-1.5) % Neut # (Auto) 3.3 (1.4-5.7) K/uL Lymph # (Auto) 2.1 (0.6-2.4) K/uL [place] # (Auto) 0.6 (0.0-0.8) K/uL Eos # (Auto) 0.3 (0.0-0.7) K/uL Baso # (Auto) 0.1 (0.0-0.1) K/uL Nucleated RBC % 0.0 /100WBC Nucleated RBCs # 0 K/uL Sodium 136 (136-148) mmol/L Potassium 4.5 (3.5-5.1) mmol/L Chloride 99 (98-107) mmol/L Carbon Dioxide 23.2 (21.0-32.0) mmol/L BUN 19 H (7.0-18.0) mg/dL Creatinine 1.0 (0.8-1.3) mg/dL Est Cr Clr Drug Dosing 81.91 mL/min Estimated GFR (MDRD) > 60.0 ml/min Glucose 136 H (74-106) mg/dL POC Glucose (60-110) mg/dL Hemoglobin A1c (4.5-6.2) % Calcium 9.9 (8.5-10.1) mg/dL Total Bilirubin 0.4 (0.2-1.0) mg/dL AST 16 (15-37) IU/L ALT 21 (14-63) IU/L Alkaline Phosphatase 57 (46-116) U/L Troponin I < 0.050 (0.000-0.056) ng/mL Total Protein 8.3 H (6.4-8.2) g/dL Albumin 4.5 (3.4-5.0) g/dL Globulin 3.8 (2.6-4.0) g/dL Albumin/Globulin Ratio 1.2 (0.9-1.6) Free T4 0.98 (0.76-1.46) ng/dL Free T3 2.48 (2.18-3.98) pg/mL TSH 3rd Generation 2.64 (0.36-3.74) uIU/mL Urine Color Urine Appearance Urine pH (5.0-8.0) Ur Specific [place] (1.001-1.035) Urine Protein (NEGATIVE) mg/dL Urine Glucose (UA) (NEGATIVE) mg/dL Urine Ketones (NEGATIVE) mg/dL Urine Occult Blood (NEGATIVE) Urine Nitrite (NEGATIVE) Urine Bilirubin (NEGATIVE) Urine Urobilinogen (<2.0) EU/dL Ur Leukocyte Esterase (NEGATIVE) Urine RBC (0-2/HPF) Urine WBC (0-5/HPF) Ur Epithelial Cells (NONE-FEW) Urine Bacteria (NEGATIVE) 08/23/18 08/23/18 08/23/18 Range/Units 10:38 11:30 12:48 WBC (4.0-11.0) K/uL RBC (4.50-5.90) M/uL Hgb (13.0-17.0) g/dL Hct (38.0-50.0) % MCV (80.0-98.0) fL MCH (27.0-32.0) pg MCHC (31.0-37.0) g/dL RDW Std Deviation (28.0-62.0) fl RDW Coeff of Shantanu (11.0-15.0) % Plt Count (150-400) K/uL MPV (7.40-12.00) fL Neut % (Auto) (48.0-80.0) % Lymph % (Auto) (16.0-40.0) % [place] % (Auto) (0.0-15.0) % Eos % (Auto) (0.0-7.0) % Baso % (Auto) (0.0-1.5) % Neut # (Auto) (1.4-5.7) K/uL Lymph # (Auto) (0.6-2.4) K/uL [place] # (Auto) (0.0-0.8) K/uL Eos # (Auto) (0.0-0.7) K/uL Baso # (Auto) (0.0-0.1) K/uL Nucleated RBC % /100WBC Nucleated RBCs # K/uL Sodium (136-148) mmol/L Potassium (3.5-5.1) mmol/L Chloride (98-107) mmol/L Carbon Dioxide (21.0-32.0) mmol/L BUN (7.0-18.0) mg/dL Creatinine (0.8-1.3) mg/dL Est Cr Clr Drug Dosing mL/min Estimated GFR (MDRD) ml/min Glucose (74-106) mg/dL POC Glucose (60-110) mg/dL Hemoglobin A1c 6.8 H (4.5-6.2) % Calcium (8.5-10.1) mg/dL Total Bilirubin (0.2-1.0) mg/dL AST (15-37) IU/L ALT (14-63) IU/L Alkaline Phosphatase (46-116) U/L Troponin I < 0.050 (0.000-0.056) ng/mL Total Protein (6.4-8.2) g/dL Albumin (3.4-5.0) g/dL Globulin (2.6-4.0) g/dL Albumin/Globulin Ratio (0.9-1.6) Free T4 (0.76-1.46) ng/dL Free T3 (2.18-3.98) pg/mL TSH 3rd Generation (0.36-3.74) uIU/mL Urine Color YELLOW Urine Appearance CLEAR Urine pH 5.5 (5.0-8.0) Ur Specific [place] <= 1.005 (1.001-1.035) Urine Protein NEGATIVE (NEGATIVE) mg/dL Urine Glucose (UA) NEGATIVE (NEGATIVE) mg/dL Urine Ketones NEGATIVE (NEGATIVE) mg/dL Urine Occult Blood TRACE-INTACT H (NEGATIVE) Urine Nitrite NEGATIVE (NEGATIVE) Urine Bilirubin NEGATIVE (NEGATIVE) Urine Urobilinogen 0.2 (<2.0) EU/dL Ur Leukocyte Esterase SMALL H (NEGATIVE) Urine RBC 0-2 (0-2/HPF) Urine WBC 5-10 (0-5/HPF) Ur Epithelial Cells OCCASIONAL (NONE-FEW) Urine Bacteria FEW (NEGATIVE) 08/23/18 08/23/18 08/24/18 Range/Units 16:34 18:50 05:49 WBC (4.0-11.0) K/uL RBC (4.50-5.90) M/uL Hgb (13.0-17.0) g/dL Hct (38.0-50.0) % MCV (80.0-98.0) fL MCH (27.0-32.0) pg MCHC (31.0-37.0) g/dL RDW Std Deviation (28.0-62.0) fl RDW Coeff of Shantanu (11.0-15.0) % Plt Count (150-400) K/uL MPV (7.40-12.00) fL Neut % (Auto) (48.0-80.0) % Lymph % (Auto) (16.0-40.0) % [place] % (Auto) (0.0-15.0) % Eos % (Auto) (0.0-7.0) % Baso % (Auto) (0.0-1.5) % Neut # (Auto) (1.4-5.7) K/uL Lymph # (Auto) (0.6-2.4) K/uL [place] # (Auto) (0.0-0.8) K/uL Eos # (Auto) (0.0-0.7) K/uL Baso # (Auto) (0.0-0.1) K/uL Nucleated RBC % /100WBC Nucleated RBCs # K/uL Sodium (136-148) mmol/L Potassium (3.5-5.1) mmol/L Chloride (98-107) mmol/L Carbon Dioxide (21.0-32.0) mmol/L BUN (7.0-18.0) mg/dL Creatinine (0.8-1.3) mg/dL Est Cr Clr Drug Dosing mL/min Estimated GFR (MDRD) ml/min Glucose (74-106) mg/dL POC Glucose 168 H 138 H (60-110) mg/dL Hemoglobin A1c (4.5-6.2) % Calcium (8.5-10.1) mg/dL Total Bilirubin (0.2-1.0) mg/dL AST (15-37) IU/L ALT (14-63) IU/L Alkaline Phosphatase (46-116) U/L Troponin I < 0.050 (0.000-0.056) ng/mL Total Protein (6.4-8.2) g/dL Albumin (3.4-5.0) g/dL Globulin (2.6-4.0) g/dL Albumin/Globulin Ratio (0.9-1.6) Free T4 (0.76-1.46) ng/dL Free T3 (2.18-3.98) pg/mL TSH 3rd Generation (0.36-3.74) uIU/mL Urine Color Urine Appearance Urine pH (5.0-8.0) Ur Specific [place] (1.001-1.035) Urine Protein (NEGATIVE) mg/dL Urine Glucose (UA) (NEGATIVE) mg/dL Urine Ketones (NEGATIVE) mg/dL Urine Occult Blood (NEGATIVE) Urine Nitrite (NEGATIVE) Urine Bilirubin (NEGATIVE) Urine Urobilinogen (<2.0) EU/dL Ur Leukocyte Esterase (NEGATIVE) Urine RBC (0-2/HPF) Urine WBC (0-5/HPF) Ur Epithelial Cells (NONE-FEW) Urine Bacteria (NEGATIVE) Med Orders - Current: Current Medications Acetaminophen (Tylenol) 650 mg PO Q4H PRN PRN Reason: Pain (Mild 1-3)/fever Amlodipine Besylate (Norvasc) 5 mg PO BEDTIME [facility] Last Admin: 08/23/18 21:08 Dose: 5 mg Aspirin (Aspirin) 325 mg PO BEDTIME [facility] Last Admin: 08/23/18 21:08 Dose: 325 mg Carvedilol (Coreg) 3.125 mg PO BID [facility] Last Admin: 08/23/18 21:08 Dose: 3.125 mg Docusate Sodium (Colace) 100 mg PO BID PRN PRN Reason: Constipation Enoxaparin Sodium (Lovenox) 40 mg SUBCUT Q24H [facility] Last Admin: 08/23/18 14:09 Dose: 40 mg Insulin Aspart (Novolog) 0 unit SUBCUT TIDAC [facility]; Protocol Last Admin: 08/24/18 06:38 Dose: Not Given Lisinopril (Prinivil) 10 mg PO DAILY [facility] Ondansetron HCl (Zofran Odt) 4 mg PO Q6H PRN PRN Reason: nausea, able to take PO Oxycodone HCl (Oxycodone) 5 mg PO Q4H PRN PRN Reason: Pain (moderate 4-6) Sodium Chloride (Saline Flush) 10 ml FLUSH ASDIRECTED PRN PRN Reason: Keep Vein Open Sodium Chloride (Saline Flush) 2.5 ml FLUSH ASDIRECTED PRN PRN Reason: Keep Vein Open Tamsulosin HCl (Flomax) 0.4 mg PO BEDTIME [facility] Last Admin: 08/23/18 21:07 Dose: Not Given Temazepam (Restoril) 15 mg PO BEDTIME PRN PRN Reason: Sleep Discontinued Medications Aspirin (Aspirin) 324 mg PO ONETIME ONE Stop: 08/23/18 10:22 Last Admin: 08/23/18 11:32 Dose: Not Given - Exam Quality Assessment: Denies: Supplemental Oxygen General: Reports: Alert, Oriented, Cooperative, No Acute Distress HEENT: Reports: Pupils Equal, Pupils Reactive Neck: Reports: Supple, Trachea Midline Lungs: Reports: Clear to Auscultation, Normal Respiratory Effort Cardiovascular: Reports: Regular Rate, Regular Rhythm GI/Abdominal Exam: Normal Bowel Sounds, Soft, Non-Tender, No Distention Back Exam: Reports: Normal Inspection, Full Range of Motion Extremities: Normal Inspection, No Pedal Edema Skin: Reports: Warm, Dry, Intact Neurological: Reports: No New Focal Deficit Psy/Mental Status: Reports: Alert, Normal Affect, Normal Mood EKG INTERPRETATION EKG Date: 08/24/18 Time: 08:14 Rhythm: NSR QRS: LBBB Comparison: No Change
[2018-08-24] MEDS ORDERED: Lisinopril 10 MG Tab PO SCH (09:00)
[2018-08-24] MEDS: Carvedilol 3.125 MG Tab PO SCH (09:33)
--- NOTE | 2018-08-28 10:53 | ECHO ---
The echocardiogram report can be seen in this patient's EMR (Electronic Medical Record) in the Reports section. The echocardiogram report has also been scanned into PACS and can be seen there as well. CAILIN
== END 2018-08-24 10:30 | disposition home or self-care (01) ==
LOC: MW.ED 10:21 → MW.MS 12:21
PROVIDERS: ADMIT Internal Medicine; ATTEND Internal Medicine
DX: R07.2 Precordial pain (principal); I10 Essential (primary) hypertension; E11.9 Type 2 diabetes mellitus without complications; E78.00 Pure hypercholesterolemia, unspecified; N42.9 Disorder of prostate, unspecified; Z95.1 Presence of aortocoronary bypass graft; Z79.82 Long term (current) use of aspirin; Z88.8 Allergy status to other drugs, medicaments and biological substances; Z91.018 Allergy to other foods; Z86.79 Personal history of other diseases of the circulatory system
CPT/HCPCS: 36415; 70450; 71045; 80053; 81001; 82962; 83036; 84439; 84443; 84481; 84484; 85025; 87086; 87088; 87186; 93005; 93306; 96372; 99285; A9270; G0378; J1650; J1815